=== PATIENT | female | born 1945 | race Caucasian/White ===

== ENCOUNTER 2016-07-01 11:03 | Emergency (ER) | payer MEDICARE ==
[2016-07-01 13:14] LABS: APPEARANCE CLEAR (CLEAR); BILIRUBIN NEGATIVE (NEGATIVE); COLOR YELLOW (YELLOW); GLUCOSE NEGATIVE (NEGATIVE); KETONE NEGATIVE (NEGATIVE); LEUKOCYTE ESTERASE NEGATIVE (NEGATIVE); NITRITE NEGATIVE (NEGATIVE); PROTEIN NEGATIVE (NEGATIVE); UROBILINOGEN NORMAL (NORMAL)
== END 2016-07-01 15:23 | disposition home or self-care (01) ==
LOC: D.ER 11:03
PROVIDERS: Emergency Medicine
DX: R33.9 Retention of urine, unspecified (principal); I10 Essential (primary) hypertension; E78.00 Pure hypercholesterolemia, unspecified; G47.00 Insomnia, unspecified

== ENCOUNTER → 2016-08-12 16:06 | Outpatient (CLI) | payer MEDICARE | END | disposition home or self-care (01) | LOC: D.MRI 08-06 14:30 | DX: M54.12 Radiculopathy, cervical region (principal) ==

== ENCOUNTER 2017-09-06 20:40 | Emergency (ER) | payer MEDICARE, BC ==
[2017-09-06 21:53] LABS: APPEARANCE CLEAR (CLEAR); BILIRUBIN NEGATIVE (NEGATIVE); COLOR STRAW (YELLOW); GLUCOSE NEGATIVE (NEGATIVE); KETONE NEGATIVE (NEGATIVE); NITRITE NEGATIVE (NEGATIVE); PROTEIN NEGATIVE (NEGATIVE); UROBILINOGEN NORMAL (NORMAL)
[2017-09-06 21:54] LABS: BASOPHILS 0.6 % (0-2); EOSINOPHILS 2.5 % (0-7); HEMATOCRIT 44.3 % (36.0-48.0); HEMOGLOBIN 14.8 g/dL (12-16); IMMATURE GRANULOCYTES 0.2 % (0-5); LYMPHOCYTES 40.2 % (15-50); MCH 29.6 pg (26.0-34.0); MCHC 33.4 g/dL (31.0-37.0); MCV 88.6 fL (80.0-100.0); MEAN PLATELET VOLUME 10.4 fL (7.4-10.4); MONOCYTES 13.5 % (2-11); PLATELET COUNT 107 10x3/uL (130-400); RDW 16.7 % (11.5-14.5); WBC 5.2 10x3/uL (4.8-10.8)
[2017-09-06 21:57] LABS: UDS - AMPHET NEGATIVE QUAL (NEGATIVE); UDS - BARB NEGATIVE QUAL (NEGATIVE); UDS - BENZO POSITIVE QUAL (NEGATIVE); UDS - COCAINE NEGATIVE QUAL (NEGATIVE); UDS - OPIATE POSITIVE QUAL (NEGATIVE); UDS - PCP NEGATIVE QUAL (NEGATIVE); UDS - THC NEGATIVE QUAL (NEGATIVE)
[2017-09-06 22:00] LABS: ALBUMIN 3.5 g/dL (3.4-5.0); ALKALINE PHOSPHATASE 67 U/L (46-116); ALT (SGPT) 38 U/L (10-68); BILIRUBIN - TOTAL 0.31 mg/dL (0.2-1.3); CALC OSMOLALITY 290 mosm/kg (275-300); CARBON DIOXIDE 26.5 mmol/L (21.0-32.0); CHLORIDE - SERUM 110 mmol/L (98-107); CREATININE - SERUM 0.8 mg/dL (0.6-1.3); GLUCOSE 86 mg/dL (74-106); PROTEIN - SERUM 7.5 g/dL (6.4-8.2); SODIUM 147 mmol/L (136-145); UREA NITROGEN 13 mg/dL (7-18); eGFR NON AFRICAN AMERICAN 75 mL/min (90-120)
[2017-09-06 22:09] LABS: LIPASE 118 U/L (73-393); PRO BNP 35 pg/mL (0-125); THYROID STIMULATING HORMONE 1.74 uIU/mL (0.36-3.74)
[2017-09-06 22:10] LABS: TROPONIN-I < 0.017 ng/mL (0.000-0.060)
== END 2017-09-06 23:08 | disposition home or self-care (01) ==
LOC: EDSEX 20:40 → D.ER 20:40
PROVIDERS: Family Medicine
DX: R45.851 Suicidal ideations (principal); F10.129 Alcohol abuse with intoxication, unspecified; Z86.59 Personal history of other mental and behavioral disorders

== ENCOUNTER → 2017-10-19 14:17 | Outpatient (CLI) | payer MEDICARE | END | disposition home or self-care (01) | LOC: D.MRI 14:00 | DX: S06.5X0A Traumatic subdural hemorrhage without loss of consciousness, initial encounter (principal); X58.XXXA Exposure to other specified factors, initial encounter; Y93.9 Activity, unspecified; Y92.9 Unspecified place or not applicable ==

== ENCOUNTER → 2017-11-30 15:38 | Outpatient (CLI) | payer MEDICARE | END | disposition home or self-care (01) | LOC: D.MRI 11-25 09:30 | DX: S06.5X0D Traumatic subdural hemorrhage without loss of consciousness, subsequent encounter (principal); X58.XXXA Exposure to other specified factors, initial encounter ==

== ENCOUNTER → 2018-01-13 14:08 | Outpatient (CLI) | payer MEDICARE | END | disposition home or self-care (01) | LOC: D.MRI 01-12 14:00 | DX: S06.5X0D Traumatic subdural hemorrhage without loss of consciousness, subsequent encounter (principal); X58.XXXA Exposure to other specified factors, initial encounter ==

== ENCOUNTER → 2018-05-04 12:38 | Outpatient (CLI) | payer MEDICARE ==
--- NOTE | ~2018-05-04 | ST ---
PATIENT:JUANA RHOADES MEDICAL RECORD: [id number] SEX: M LOCATION:[facility] ORDER #: ADMISSION DATE: 05/04/18 AGE OF PATIENT: 73 REFERRING PHYSICIAN: INTERPRETING PHYSICIAN: ROBERT FREEMAN MD DATE OF SERVICE: 05/04/2018 PROCEDURE: Nuclear stress test. INDICATION: Chest pain, shortness of breath, hypertension, and hyperlipidemia. DESCRIPTION OF PROCEDURE: The patient was exercised on standard Lexiscan protocol with 32.6 mCi injected at peak stress, 10.7 mCi were used previously for rest images. FINDINGS: Gated SPECT reveals preserved ejection fraction at 67% with good wall motioning and thickening and brightening throughout all segments. SPECT IMAGING: Sestamibi is used as a myocardial perfusion agent. There is definite reversibility inferiorly and apically. This includes the basal, mid apical, inferior segments as well as the apex itself. The degree of reversibility is moderate. The amount of myocardium involved is moderate. OVERALL IMPRESSION: 1. This is an abnormal nuclear stress test with reversible ischemia inferiorly and apically. 2. Gated SPECT reveals preserved ejection fraction greater than 60%. In this patient with ongoing symptomatology, the current scan does suggest the presence of hemodynamically significant coronary artery disease. We will proceed with coronary angiography as followup study. TRANSINT:[id number] Voice Confirmation ID: [id number] DOCUMENT ID: [id number] ROBERT FREEMAN MD at 1704 CC: [id number] DICTATION DATE: 05/05/18 1205 CARPET REPAIRER: 05/05/18 1322 DEP CLI 05/04/18 [address] [place] [address]
== END | disposition home or self-care (01) ==
LOC: D.HCCARDIO 12:30
DX: I25.10 Atherosclerotic heart disease of native coronary artery without angina pectoris (principal)

== ENCOUNTER → 2018-05-17 13:54 | Outpatient (CLI) | payer MEDICARE | END | disposition home or self-care (01) | LOC: D.MRI 13:54 | DX: S06.5X0D Traumatic subdural hemorrhage without loss of consciousness, subsequent encounter (principal); X58.XXXA Exposure to other specified factors, initial encounter ==

== ENCOUNTER 2018-08-12 08:46 | Day surgery (SDC) | payer MEDICARE ==
[~2018-08-12] VITALS: Ht 172.7 cm; Wt 112.0 kg
[~2018-08-12 08:46] MED LIST: AMBIEN10 MG PO; FLOMAX0.4 MG PO; LISINOPRIL-HCT1 EAC7 PO; PHENERGAN25 M1 PO; XANAX1 MG PO; ZOFRAN ODT4 MG/UDTAB PO
[2018-08-12 09:47] LABS: HEMATOCRIT 39.6 % (42.0-54.0); HEMOGLOBIN 12.7 g/dL (13.5-17.5); MCH 26.7 pg (26.0-34.0); MCHC 32.1 g/dL (31.0-37.0); MCV 83.2 fL (80.0-100.0); MEAN PLATELET VOLUME 11.2 fL (7.4-10.4); RBC 4.76 10x6/uL (4.20-6.10); WBC 5.7 10x3/uL (4.8-10.8)
[2018-08-12 09:50] LABS: CALC OSMOLALITY 285 mosm/kg (275-300); CALCIUM 8.4 mg/dL (8.5-10.1); CHLORIDE - SERUM 105 mmol/L (98-107); CREATININE - SERUM 0.9 mg/dL (0.6-1.3); GLUCOSE 101 mg/dL (74-106); POTASSIUM - SERUM 3.4 mmol/L (3.5-5.1); SODIUM 143 mmol/L (136-145); UREA NITROGEN 14 mg/dL (7-18); eGFR NON AFRICAN AMERICAN 88 mL/min (90-120)
[2018-08-12 10:26] VITALS: BP 109/67; Ht 172.7 cm; Wt 112.0 kg
--- NOTE | 2018-08-13 09:02 | OP ---
PATIENT NAME: JUANA RHOADES MEDICAL RECORD: [id number] :49 LOCATION:D.OPS ADMISSION DATE: SURGEON: KOKO DALEY MD DATE OF OPERATION: 08/12/2018 SURGEON: Koko Daley MD ANESTHESIA: TIVA by Blake Dudley CRNA DIAGNOSES: Obstructive BPH, PSA 0.79 on 07/21/2018, COLIN with 30 mL prostate size. The patient is not in urinary retention. The patient has been on tamsulosin for greater than 6 months. With the medication on board, he has an IPSS score of 28 and a quality of life score of 6. PROCEDURE: UroLift times 5 implant, 3 placed on the left side and 2 on the right side. FINDINGS: Bilateral lateral lobe hyperplasia with long prostatic urethra. Nonobstructive small median lobe. Single ureteral orifice bilaterally. No bladder tumors. ESTIMATED BLOOD LOSS: Minimal. CLINICAL HISTORY: This is a 73-year-old male who has long-standing history of bladder outlet obstruction. He had been on finasteride 6 years ago, but he stopped it when he read that it could give him high-grade prostate cancer. His BPH symptoms have become worse in the past 2 years. For at least 6 months now, he has been on tamsulosin. Even with the tamsulosin, he is still having quite significant voiding symptoms. He does not have urinary retention. He has an IPSS score of 28 and a quality of life score of 6. On digital rectal examination, the prostate is about 30 mL in size without nodularity. He comes to have the UroLift procedure done. HE IS ALLERGIC TO PENICILLIN AND ADIPEX. He was given Ancef on-call to the OR. He did not have a reaction with Ancef. DESCRIPTION OF PROCEDURE: The patient was given IV sedation. He was then placed in dorsal lithotomy position and prepped and draped. UroLift cystoscope was inserted with the findings as outlined above. We placed one implant on each side of the bladder neck level. This is actually 1.5 cm distal to the bladder neck and placed in the anterolateral prostatic urethra. We placed one implant on each side of the verumontanum level and again at the anterolateral prostatic urethra. On looking at the prostatic urethra with the obturator, it seemed that there was still tissue from the patient's right side, which was encroaching into the lumen. This was the tissue in the midportion of the prostatic urethra. I therefore placed another unit in the midportion of the right lateral lobe in the anterior portion. This final unit opened up the anterior urethral channel quite nicely. His bladder was then emptied through the cystoscope and the patient was brought to the preoperative holding area. I will see him in follow up in one month's time. TRANSINT:[id number] Voice Confirmation ID: [id number] DOCUMENT ID: [id number] OPERATIVE REPORT [id number] JUANA RHOADES, KOKO Sol MD at 0902 CC: [id number] DICTATION DATE: 08/12/18 1358 GERIATRIC NURSE ASSISTANT: 08/12/18 1619 [facility] 08/12/18 [address] [place] [address]
== END 2018-08-12 17:08 | disposition home or self-care (01) ==
LOC: D.OPS 08:46
PROVIDERS: Anesthesiology; ATTEND Urology
DX: N40.1 Benign prostatic hyperplasia with lower urinary tract symptoms (principal); N13.8 Other obstructive and reflux uropathy; Z88.0 Allergy status to penicillin; Z88.8 Allergy status to other drugs, medicaments and biological substances; Z01.812 Encounter for preprocedural laboratory examination

== ENCOUNTER → 2018-08-19 18:45 | Outpatient (CLI) | payer MEDICARE ==
[2018-08-12 10:26] VITALS: BMI 37.6
== END | disposition home or self-care (01) ==
LOC: D.LABREF 18:45
PROVIDERS: ATTEND Urology
DX: D72.829 Elevated white blood cell count, unspecified (principal); R31.9 Hematuria, unspecified

== ENCOUNTER 2018-10-08 18:42 | Emergency (ER) | payer MEDICARE ==
[~2018-10-08] VITALS: Ht 172.7 cm; Wt 117.3 kg
[2018-10-08 18:49] VITALS: Ht 172.7 cm; Wt 117.3 kg
[2018-10-08 19:25] LABS: BASOPHILS 0.5 % (0-2); EOSINOPHILS 0.8 % (0-7); HEMATOCRIT 41.5 % (42.0-54.0); HEMOGLOBIN 13.8 g/dL (13.5-17.5); IMMATURE GRANULOCYTES 0.3 % (0-5); LYMPHOCYTES 13.5 % (15-50); MCH 27.5 pg (26.0-34.0); MCHC 33.3 g/dL (31.0-37.0); MCV 82.7 fL (80.0-100.0); MEAN PLATELET VOLUME 9.2 fL (7.4-10.4); MONOCYTES 12.2 % (2-11); NEUTROPHILS 72.7 % (40-80); PLATELET COUNT 126 10x3/uL (130-400); RBC 5.02 10x6/uL (4.20-6.10); RDW 19.1 % (11.5-14.5); WBC 6.2 10x3/uL (4.8-10.8)
[2018-10-08 19:50] LABS: ALBUMIN 3.6 g/dL (3.4-5.0); ALKALINE PHOSPHATASE 105 U/L (46-116); ALT (SGPT) 118 U/L (10-68); BILIRUBIN - TOTAL 0.41 mg/dL (0.2-1.3); CALC OSMOLALITY 282 mosm/kg (275-300); CALCIUM 8.2 mg/dL (8.5-10.1); CARBON DIOXIDE 23.6 mmol/L (21.0-32.0); CHLORIDE - SERUM 103 mmol/L (98-107); CREATININE - SERUM 0.9 mg/dL (0.6-1.3); GLUCOSE 106 mg/dL (74-106); MAGNESIUM - SERUM 1.8 mg/dL (1.8-2.4); POTASSIUM - SERUM 4.2 mmol/L (3.5-5.1); PROTEIN - SERUM 8.1 g/dL (6.4-8.2); SODIUM 142 mmol/L (136-145); UREA NITROGEN 12 mg/dL (7-18); eGFR NON AFRICAN AMERICAN 88 mL/min (90-120)
[2018-10-08 20:43] LABS: APPEARANCE CLEAR (CLEAR); BILIRUBIN NEGATIVE (NEGATIVE); COLOR YELLOW (YELLOW); GLUCOSE NEGATIVE (NEGATIVE); KETONE SMALL mg/dL (NEGATIVE); NITRITE NEGATIVE (NEGATIVE); PROTEIN NEGATIVE (NEGATIVE); SPECIFIC GRAVITY 1.015 (1.005-1.020); UROBILINOGEN NORMAL (NORMAL)
[2018-10-08 20:44] LABS: UDS - AMPHET NEGATIVE QUAL (NEGATIVE); UDS - BARB NEGATIVE QUAL (NEGATIVE); UDS - BENZO POSITIVE QUAL (NEGATIVE); UDS - COCAINE NEGATIVE QUAL (NEGATIVE); UDS - OPIATE POSITIVE QUAL (NEGATIVE); UDS - PCP NEGATIVE QUAL (NEGATIVE); UDS - THC NEGATIVE QUAL (NEGATIVE)
[2018-10-08 20:54] LABS: INR 1.02 (0.85-1.17); PROTIME 12.9 SECONDS (11.6-15.0)
[2018-10-08 22:04] VITALS: BP 162/72
== END 2018-10-08 22:04 | disposition home or self-care (01) ==
LOC: D.ER 18:42
PROVIDERS: Emergency Medicine
DX: F10.10 Alcohol abuse, uncomplicated (principal); S09.90XA Unspecified injury of head, initial encounter; W19.XXXA Unspecified fall, initial encounter; Y93.9 Activity, unspecified

== ENCOUNTER 2019-03-11 17:02 | Emergency (ER) | payer MEDICARE ==
[~2019-03-11] VITALS: Ht 172.7 cm; Wt 113.6 kg
[2019-03-11 17:42] VITALS: Ht 172.7 cm; Wt 113.6 kg
[2019-03-11] MEDS ORDERED: HYDROCODONE-A1 UDTA2 PO (17:51)
[2019-03-11 18:52] LABS: BASOPHILS 0.6 % (0-2); EOSINOPHILS 2.8 % (0-7); HEMATOCRIT 44.8 % (42.0-54.0); HEMOGLOBIN 14.6 g/dL (13.5-17.5); IMMATURE GRANULOCYTES 0.1 % (0-5); LYMPHOCYTES 17.7 % (15-50); MCH 28.9 pg (26.0-34.0); MCHC 32.6 g/dL (31.0-37.0); MCV 88.5 fL (80.0-100.0); MEAN PLATELET VOLUME 10.9 fL (7.4-10.4); MONOCYTES 12.5 % (2-11); NEUTROPHILS 66.3 % (40-80); RBC 5.06 10x6/uL (4.20-6.10)
[2019-03-11 19:07] LABS: INR 1.06 (0.85-1.17); PROTIME 13.3 SECONDS (11.6-15.0)
[2019-03-11 19:10] LABS: ALKALINE PHOSPHATASE 115 U/L (46-116); ALT (SGPT) 124 U/L (10-68); BILIRUBIN - TOTAL 0.32 mg/dL (0.2-1.3); CALC OSMOLALITY 285 mosm/kg (275-300); CALCIUM 8.5 mg/dL (8.5-10.1); CARBON DIOXIDE 25.7 mmol/L (21.0-32.0); CHLORIDE - SERUM 105 mmol/L (98-107); GLUCOSE 109 mg/dL (74-106); POTASSIUM - SERUM 3.8 mmol/L (3.5-5.1); SODIUM 143 mmol/L (136-145); UREA NITROGEN 13 mg/dL (7-18); eGFR NON AFRICAN AMERICAN 78 mL/min (90-120)
[2019-03-11 19:12] LABS: PLATELET COUNT 163 10x3/uL (130-400)
[2019-03-11 19:23] LABS: CKMB 7.8 U/L (0.0-3.6); CREATINE KINASE 419 UL (21-232); MAGNESIUM - SERUM 2.3 mg/dL (1.8-2.4); THYROID STIMULATING HORMONE 2.47 uIU/mL (0.36-3.74); TROPONIN-I < 0.017 ng/mL (0.000-0.060)
[2019-03-11] MEDS ORDERED: XANAX2 MG PO (20:46)
[2019-03-11 21:07] VITALS: BP 140/90
== END 2019-03-11 21:07 | disposition home or self-care (01) ==
LOC: D.ER 17:02
PROVIDERS: Emergency Medicine
DX: R47.81 Slurred speech (principal); F41.0 Panic disorder [episodic paroxysmal anxiety]; R74.8 Abnormal levels of other serum enzymes; I10 Essential (primary) hypertension

== ENCOUNTER 2019-03-16 17:53 | Emergency (ER) | payer MEDICARE ==
[~2019-03-16] VITALS: Ht 172.7 cm; Wt 113.6 kg
[~2019-03-16 17:53] MED LIST changes: +HYDROCODONE-A1 UDTA2 PO; +XANAX2 MG PO
[2019-03-16 17:56] VITALS: BP 131/73; Ht 172.7 cm; Wt 113.6 kg
[2019-03-16 18:30] LABS: BASOPHILS 0.5 % (0-2); HEMATOCRIT 45.4 % (42.0-54.0); HEMOGLOBIN 14.7 g/dL (13.5-17.5); IMMATURE GRANULOCYTES 0.3 % (0-5); LYMPHOCYTES 22.2 % (15-50); MCH 28.7 pg (26.0-34.0); MCHC 32.4 g/dL (31.0-37.0); MCV 88.5 fL (80.0-100.0); MEAN PLATELET VOLUME 10.8 fL (7.4-10.4); MONOCYTES 15.7 % (2-11); NEUTROPHILS 58.3 % (40-80); PLATELET COUNT 164 10x3/uL (130-400); RBC 5.13 10x6/uL (4.20-6.10); RDW 16.6 % (11.5-14.5); WBC 6.6 10x3/uL (4.8-10.8)
[2019-03-16 18:47] LABS: ALBUMIN 3.7 g/dL (3.4-5.0); ALKALINE PHOSPHATASE 83 U/L (46-116); ALT (SGPT) 57 U/L (10-68); BILIRUBIN - TOTAL 0.21 mg/dL (0.2-1.3); CALC OSMOLALITY 287 mosm/kg (275-300); CALCIUM 8.8 mg/dL (8.5-10.1); CARBON DIOXIDE 27.4 mmol/L (21.0-32.0); CHLORIDE - SERUM 105 mmol/L (98-107); GLUCOSE 113 mg/dL (74-106); POTASSIUM - SERUM 3.8 mmol/L (3.5-5.1); SODIUM 144 mmol/L (136-145); UREA NITROGEN 12 mg/dL (7-18); eGFR NON AFRICAN AMERICAN 78 mL/min (90-120)
[2019-03-16 18:49] LABS: MAGNESIUM - SERUM 1.9 mg/dL (1.8-2.4)
== END 2019-03-16 20:09 | disposition left against medical advice (07) ==
LOC: D.ER 17:53
PROVIDERS: Emergency Medicine
DX: F10.129 Alcohol abuse with intoxication, unspecified (principal); Z76.5 Malingerer [conscious simulation]; I10 Essential (primary) hypertension

== ENCOUNTER 2019-07-04 13:10 | Emergency (ER) | payer MEDICARE ==
[~2019-07-04] VITALS: Ht 172.7 cm; Wt 106.8 kg
[2019-07-04 13:32] VITALS: Ht 172.7 cm; Wt 106.8 kg
[2019-07-04] MEDS ORDERED: FLOMAX0.4 MG PO (13:34)
[2019-07-04] MEDS ORDERED: ZOFRAN4 MG PO (14:05)
[2019-07-04 14:13] VITALS: BP 148/58
== END 2019-07-04 14:15 | disposition home or self-care (01) ==
LOC: D.ER 13:10
DX: R11.0 Nausea (principal); T83.84XA Pain due to genitourinary prosthetic devices, implants and grafts, initial encounter; I10 Essential (primary) hypertension; K21.9 Gastro-esophageal reflux disease without esophagitis

== ENCOUNTER 2019-07-06 15:17 | Inpatient (IN) | payer MEDICARE, OTHER ==
[~2019-07-06] VITALS: Ht 172.7 cm; Wt 104.7 kg
[~2019-07-06 15:17] MED LIST changes: +ZOFRAN4 MG PO
[2019-07-06 16:12] LABS: BASOPHILS 0.3 % (0-2); EOSINOPHILS 2.1 % (0-7); HEMATOCRIT 38.6 % (42.0-54.0); HEMOGLOBIN 12.7 g/dL (13.5-17.5); IMMATURE GRANULOCYTES 0.7 % (0-5); LYMPHOCYTES 9.3 % (15-50); MCH 26.7 pg (26.0-34.0); MCHC 32.9 g/dL (31.0-37.0); MCV 81.1 fL (80.0-100.0); MEAN PLATELET VOLUME 10.1 fL (7.4-10.4); MONOCYTES 14.6 % (2-11); PLATELET COUNT 203 10x3/uL (130-400); RBC 4.76 10x6/uL (4.20-6.10); RDW 16.8 % (11.5-14.5); WBC 10.7 10x3/uL (4.8-10.8)
[2019-07-06 16:23] LABS: INR 1.05 (0.85-1.17); PROTIME 13.6 SECONDS (11.6-15.0)
[2019-07-06 16:26] LABS: CALC OSMOLALITY 266 mosm/kg (275-300); CALCIUM 8.9 mg/dL (8.5-10.1); CARBON DIOXIDE 28.3 mmol/L (21.0-32.0); CHLORIDE - SERUM 96 mmol/L (98-107); CREATININE - SERUM 0.9 mg/dL (0.6-1.3); GLUCOSE 89 mg/dL (74-106); POTASSIUM - SERUM 4.3 mmol/L (3.5-5.1); SODIUM 132 mmol/L (136-145); UREA NITROGEN 20 mg/dL (7-18); eGFR NON AFRICAN AMERICAN 88 mL/min (90-120)
[2019-07-06 16:28] LABS: APPEARANCE CLEAR (CLEAR); BILIRUBIN NEGATIVE (NEGATIVE); COLOR YELLOW (YELLOW); GLUCOSE NEGATIVE (NEGATIVE); KETONE NEGATIVE (NEGATIVE); NITRITE NEGATIVE (NEGATIVE); PROTEIN NEGATIVE (NEGATIVE); UROBILINOGEN NORMAL (NORMAL)
[2019-07-06 16:30] LABS: BACTERIA MODERATE /hpf (NEGATIVE)
[2019-07-06 16:31] LABS: UDS - AMPHET NEGATIVE QUAL (NEGATIVE); UDS - BARB NEGATIVE QUAL (NEGATIVE); UDS - BENZO POSITIVE QUAL (NEGATIVE); UDS - COCAINE NEGATIVE QUAL (NEGATIVE); UDS - OPIATE POSITIVE QUAL (NEGATIVE); UDS - PCP NEGATIVE QUAL (NEGATIVE); UDS - THC NEGATIVE QUAL (NEGATIVE)
[2019-07-06 16:42] LABS: ALBUMIN 3.3 g/dL (3.4-5.0); ALKALINE PHOSPHATASE 82 U/L (46-116); ALT (SGPT) 44 U/L (10-68); BILIRUBIN - TOTAL 0.28 mg/dL (0.2-1.3); CKMB 3.9 U/L (0.0-3.6); CREATINE KINASE 359 UL (21-232); MAGNESIUM - SERUM 2.1 mg/dL (1.8-2.4); PROTEIN - SERUM 7.2 g/dL (6.4-8.2); THYROID STIMULATING HORMONE 2.87 uIU/mL (0.36-3.74); TROPONIN-I < 0.017 ng/mL (0.000-0.060)
[2019-07-06 18:32] VITALS: BP 135/54
--- NOTE | 2019-07-06 18:33 | NUR ---
AFTER MULTIPLE TIMES OF ASKING THE PT TO SIT DOWN, NOT MOVE AROUNS UNSUCCESSFUL, PT PULLED OUT IV, CATH TIP INTACT, NO BLEEDING NOTED, NATALIYA TRAVELING CRANE OPERATOR NOTIFIED, WILL ATTEMPT TO RESTART IV, PT ALSO POURDED HIS WATER OUT 2 TIMES ON THE FLORR, FLOOR CLEANED UP AND DRIED, PT STATES"I'M SORRY I DIDN'T MEAN TO DO IT".
--- NOTE | 2019-07-06 19:16 | NUR ---
NOTE MADE IN ERROR.
--- NOTE | 2019-07-06 19:41 | NUR ---
PT'S IV LEVAQUIN AND NS BOLUS STILL INFUSING UPON TRANSFER TO FLOOR
[2019-07-06 20:13] VITALS: BP 127/63; Ht 172.7 cm; Wt 104.7 kg
--- NOTE | 2019-07-06 20:20 | NUR ---
RECIEVED REPORT FROM DANIEETHAN. PT ARRIVED BY BED. VSS, A/CONFUSED. PRE-HOSPITALIZATION PEREZ INTACT. ALTHOUGH PT HAS THE PEREZ BAG WARAPPED AROUND HIS NECK AND REFUSED TO TAKE IT OFF. NS AND LEVAQUIN INFUSING ON ARRIVAL. ADMISSION ASSESSMENT COMPLETED. PT DENIES ANY FURTHER NEEDS AT THIS TIME. BED ALARM ON. WILL CTM.
[2019-07-07 00:30] VITALS: BP 134/54
--- NOTE | 2019-07-07 02:07 | NUR ---
PT DISCONNECTED HIS PEREZ AT THE POINT WHERE IT IS ATTACHED TO THE BAG. PT APPEARS MODERATELY CONFUSED. STERNLY NOTIFIED ABOUT RISK OF INFECTION AND URINE LEAKAGE TO THE FLOOR, BUT PT INSIST ON HOLDING THE TUBINGIN HIS HAND WITHOUT IT BEEN CONNECTED TO THE PEREZ BAG.
[2019-07-07 04:30] VITALS: BP 134/66; BP 172/76
--- NOTE | 2019-07-07 05:31 | NUR ---
PT C/O OF NAUSEA. ZOFRAN GIVEN. ALSO ON ASSESSMENT SBP >190. HR 47. CALLED AND NOTIFIED ON-CALL . HE ORDER CLONIDINE 0.1MG PO ONE TIME. HE STATES DR. ORR WILL START PT ON HIS PREFFERED MED WHEN HE MAKES ROUND TODAY. PT ALSO C/O OF COLD. WARM BLANKET PROVIDED. PT DENIES ANY FURTHER NEEDS AT THIS TIME. WILL CPOC. CL WITHIN REACH.
[2019-07-07 05:44] LABS: BASOPHILS 0.3 % (0-2); EOSINOPHILS 4.4 % (0-7); HEMATOCRIT 38.6 % (42.0-54.0); HEMOGLOBIN 12.5 g/dL (13.5-17.5); IMMATURE GRANULOCYTES 0.8 % (0-5); LYMPHOCYTES 16.8 % (15-50); MCH 26.5 pg (26.0-34.0); MCHC 32.4 g/dL (31.0-37.0); MCV 81.8 fL (80.0-100.0); MEAN PLATELET VOLUME 9.8 fL (7.4-10.4); MONOCYTES 15.1 % (2-11); NEUTROPHILS 62.6 % (40-80); PLATELET COUNT 199 10x3/uL (130-400); RBC 4.72 10x6/uL (4.20-6.10); RDW 16.8 % (11.5-14.5)
[2019-07-07 05:51] LABS: WBC 6.6 10x3/uL (4.8-10.8)
[2019-07-07 06:29] LABS: % SATURATION 13 % (15-55); IRON 42 ug/dl (35-150); TOTAL IRON BIND CAPACITY 319 ug/dl (260-445); UNSAT IRON BIND CAPACITY 277 ug/dl (150-375)
[2019-07-07 06:43] LABS: CALC OSMOLALITY 265 mosm/kg (275-300); CALCIUM 8.4 mg/dL (8.5-10.1); CHLORIDE - SERUM 98 mmol/L (98-107); CREATININE - SERUM 0.9 mg/dL (0.6-1.3); FERRITIN 59 ng/mL (3-244); GLUCOSE 81 mg/dL (74-106); MAGNESIUM - SERUM 2.4 mg/dL (1.8-2.4); PHOSPHOROUS 2.6 mg/dL (2.5-4.9); POTASSIUM - SERUM 4.6 mmol/L (3.5-5.1); SODIUM 133 mmol/L (136-145); eGFR NON AFRICAN AMERICAN 88 mL/min (90-120)
[2019-07-07 06:45] LABS: UREA NITROGEN 14 mg/dL (7-18)
--- NOTE | 2019-07-07 06:52 | NUR ---
NOTIFIED SPOUSE ABOUT PT BEING TRANSFERED TO ICU. SPOUSE STATES SHE WILL BE HERE AT 9AM THIS MORNING.
--- NOTE | 2019-07-07 07:15 | NUR ---
CALLED AND NOTIFIED LUIS ONEAL ABOUT PT'S CONTINUOUS RETLESSNES AND AGGITATION. HE ORDERED A 1 TIME ORDER OF 10MG GEODON. MED GIVEN. PT RESTING COMFORTABLY AT THIS TIME. ICU TRANSFER ORDER PLACED PER PROVIDERS ORDER. WILL CPOC.
[2019-07-07 07:46] VITALS: BP 147/64
--- NOTE | 2019-07-07 08:18 | NUR ---
pardeep arrived to unit. jconfused. ns infusing at 125. hallucinating about Miguel. no acute distress. vss. asked for xanax and ambien to help him sleep. restraints at bedside incase needed. knows he is at [facility] states his coats hurts and wants it out. educated on why he cant pull it out. lungs cta. pulses palp x4. room air 97%. will continue to monitor
--- NOTE | 2019-07-07 08:24 | NUR ---
attempted to pull medications for patient. ana showed she pulled them but never scanned them. call med 2 to speak with tera to make sure double doses are not given to the patient
--- NOTE | 2019-07-07 09:47 | NUR ---
AT BEDSIDE. PATIENT EATING BREAKFAST. AWAKE AND ALERT. WILL COTMARTIRNUE TOMONITOR
[2019-07-07 11:00] VITALS: BP 110/73
--- NOTE | 2019-07-07 11:30 | NUR ---
patient sleeping. easily aroused. vss. no acute distress. states he needs to see dr shirin peñaloza to get this coats out. stated he will be by to see you just have to be patient. patient is very compliant. follows commands. not pulling or tugging at coats. will continue to monitor
--- NOTE | 2019-07-07 13:50 | NUR ---
patient sleeping. vss. no caute distress.. eaisly awakens with bvoice. calm and cooperative.
[2019-07-07 15:00] VITALS: BP 122/58
--- NOTE | 2019-07-07 15:03 | NUR ---
PATIENT PULLED OUT IV SO NEW IV STARTED ON R FOREARM
--- NOTE | 2019-07-07 15:37 | NUR ---
pauly dc'd per dr carpio. he stated he does not believe he needs a turp.
--- NOTE | 2019-07-07 15:38 | NUR ---
dr carpio stated to call if he does not urinate this evening after bladder scanning him.
--- NOTE | 2019-07-07 17:16 | NUR ---
PATIENT TRYING TO PULL AT LINES. GETTING OUT OF BED AND TRYING TO LEAVE THE ROOM. CALLED DR PRUITT. NEW ORDERS GIVEN
--- NOTE | 2019-07-07 18:23 | NUR ---
bladder scanned patient at this time. volume was 287. patient states he has no urge to pee at this time. will continue to monitor patient.
--- NOTE | 2019-07-07 19:45 | NUR ---
spoke with pharmacy about giving pm dose of stacy germp since it was given at 1100 today. Pharmacy states pt can have hs dose as ordered.
[2019-07-07 20:00] VITALS: BP 151/80
--- NOTE | 2019-07-07 20:25 | NUR ---
SPOKE WITH DR. HIGGINS ABOUT PAITENT TRYING TO GET OUT OF BED, INSISTING HE CAN NOT URINATE, THAT HE IS IN SEVERE PAIN, AND IS LEAVING IF HE DOESN'T GET A PEREZ SO HE CAN URINATE. DR. HIGGINS ORDER PLACEMENT OF PEREZ CATH FOR TONIGHT.
--- NOTE | 2019-07-07 20:30 | NUR ---
PATIENT HAD BLOOD NOTED IN PANTS AND AROUND URETHRA OPENING. 16 F PEREZ ATTEMPTED WITH RETURN OF DARK BLOOD AND NO URINE NOTED. BALLOON INFLATED AND WHEN PULLED BACK IT STOPPED. NO URINE NOTED IN TUBING WILL CONTINUE TO MONITOR.
--- NOTE | 2019-07-07 21:45 | NUR ---
PATIENT STILL HAS NO URINE IN PEREZ AND IS COMPLAINING HE NEEDS TO URINATE. PEREZ REMOVED AND COUDE 16F CATH INSERTED WITHOUT ISSUE. PATIENT IS STILL HAVE A SMALL AMOUNT OF BLEEDING NOTED AROUND END OF URETHRA. PEREZ WENT IN WITHOUT ISSUE IMMEDIATE RETURN OF 1200 ML OF CL YELLOW URINE.
[2019-07-08] VITALS (7 sets, daily range): BP systolic 123–181; BP diastolic 69–110
[2019-07-08 03:38] LABS: BASOPHILS 0.4 % (0-2); EOSINOPHILS 3.7 % (0-7); IMMATURE GRANULOCYTES 0.5 % (0-5); LYMPHOCYTES 12.4 % (15-50); MCHC 32.5 g/dL (31.0-37.0); MEAN PLATELET VOLUME 9.7 fL (7.4-10.4); MONOCYTES 16.2 % (2-11); NEUTROPHILS 66.8 % (40-80); PLATELET COUNT 201 10x3/uL (130-400); RBC 4.82 10x6/uL (4.20-6.10)
[2019-07-08 03:45] LABS: WBC 8.4 10x3/uL (4.8-10.8)
[2019-07-08 03:56] LABS: CALC OSMOLALITY 278 mosm/kg (275-300); CALCIUM 8.4 mg/dL (8.5-10.1); CARBON DIOXIDE 27.4 mmol/L (21.0-32.0); CHLORIDE - SERUM 105 mmol/L (98-107); CREATININE - SERUM 0.9 mg/dL (0.6-1.3); GLUCOSE 91 mg/dL (74-106); MAGNESIUM - SERUM 2.5 mg/dL (1.8-2.4); POTASSIUM - SERUM 4.4 mmol/L (3.5-5.1); SODIUM 140 mmol/L (136-145); UREA NITROGEN 13 mg/dL (7-18); eGFR NON AFRICAN AMERICAN 88 mL/min (90-120)
[2019-07-08 03:59] LABS: PHOSPHOROUS 3.7 mg/dL (2.5-4.9)
--- NOTE | 2019-07-08 07:30 | NUR ---
patient is alert and oriented but does hallucinate at times. patient states things happened that never happened. he is alert to time place and situation. answers most questions appropriately. calm and cooperative. see assessment. see adl's. coats in place free of kinks and off floor. side rails x2 and bed in lowest position
--- NOTE | 2019-07-08 09:16 | NUR ---
patient on the phone. attempting to contact dr johnson on his personal cellular. patient has demanded multiple times to get ahold of dr johnson. explained that the dr will be here before noon to see him. no acute distress. will continue to monitor
--- NOTE | 2019-07-08 13:30 | NUR ---
patient actually sleeping. no acute distress. pulled off spo2, bp cuff and heart monitor.
--- NOTE | 2019-07-08 14:40 | NUR ---
patient requesting i call dr johnson to
--- NOTE | 2019-07-08 14:40 | NUR ---
patient refuses to use bedside commode. states we have him "locked up" and are not letting him out. explained this is ICU and were a closed unit
--- NOTE | 2019-07-08 15:01 | NUR ---
dr herrera at bedside
--- NOTE | 2019-07-08 17:03 | NUR ---
pauly dc'd per dr carpio. if he does not pee all night insert coats again per dr carpio
--- NOTE | 2019-07-08 17:25 | NUR ---
brought medication into room. brought suppositories for after told not to. seymour medeiros rn was told about situation
--- NOTE | 2019-07-08 18:04 | NUR ---
patient urinated 100 cc in coats canister. he also had a bm afterwards
--- NOTE | 2019-07-08 19:35 | NUR ---
PT RESTING QUIETLY WITH EYES CLOSED, ASSESSMENT COMPLETED, VITALS STABLE
--- NOTE | 2019-07-08 20:30 | MORECARE ---
CASE MANAGEMENT DISCHARGE SUMMARY PATIENT: JUANA RHOADES UNIT: [id number] ADM DATE: 07/06/19 AGE: 74 : 47 SEX: M ROOM/BED: D.2306 AUTHOR: MANDY HENRIQUEZ PHYSICIAN: REFERRING PHYSICIAN: MAGUE HIGGINS DO DATE OF SERVICE: 07/08/19 Discharge Plan Patient Name: JUANA RHOADES [facility] [facility] 1945 Planned Disposition: Anticipated Discharge Date: Discharge Date: Expected LOS: Initial Reviewer: [email or web address] Initial Review Date: 07/06/2019 Generated: 07/08/19 9:30 pm Patient Name: JUANA RHOADES Page [id number] at 2029 All edits/amendments must be made on the electronic document DICTATION DATE: 07/08/192029 GAS ENGINE OPERATOR GENERATORS: AUTUMN 07/08/192029 RPT#: [id number] DC DATE: STATUS: ADM IN [facility] [address] [place] [address] END OF REPORT
--- NOTE | 2019-07-08 20:37 | MORECARE ---
CASE MANAGEMENT DISCHARGE SUMMARY PATIENT: JUANA RHOADES UNIT: [id number] ADM DATE: 07/06/19 AGE: 74 : 47 SEX: M ROOM/BED: D.2306 AUTHOR: MANDY HENRIQUEZ PHYSICIAN: REFERRING PHYSICIAN: AMGUE HIGGINS DO DATE OF SERVICE: 07/08/19 Discharge Plan Patient Name: JUANA RHOADES Facility: [facility]:[place] : 1945 Planned Disposition: Anticipated Discharge Date: Discharge Date: Expected LOS: Initial Reviewer: [email or web address] Initial Review Date: 07/06/2019 Generated: 07/08/19 9:36 pm Comments DCP- Discharge Planning Updated by [email or web address]: Marylou Bridges on 07/08/19 7:[address] LATE ENTRY 07/07/19 Patient Name: JUANA RHOADES Admission Status: ER Accout number: [id number] Admission Date: 07-06-2019 : 1945 Admission Diagnosis: Attending: MAGUE HIGGINS Current LOS: 1 Anticipated DC Date: Planned Disposition: Primary Insurance: [employer] [facility] Discharge Planning Comments: CM met with patient at bedside after explaining CM role and obtaining verbal consent. Patient lives at home with his where he is independent with his care and plans to return there upon discharge. Patient feels this would be a safe discharge. CM discussed availability / needs of home health and medical equipment. Patient denies any discharge needs at this time. Patient states he will have his family drive him home upon discharge. CM will continue to follow and assist as needed with discharge planning / needs. Overhead Crane Inspector: Marylou Bridges DCPIA - Discharge Planning Initial Assessment Updated by [email or web address]: Marylou Bridges on 07/08/19 8:32 pm * Is the patient Alert and Oriented? Yes * How many steps to enter\exit or inside your home? * PCP ED[facility]D * Pharmacy [facility] * Preadmission Environment Home with Family * ADLs Independent * Other Equipment WALKER, CANE * List name and contact numbers for known caregivers / representatives who currently or will assist patient after discharge: PORTER RHOADES - SPOUSE - [phone] * Verbal permission to speak to the caregivers and representatives has been obtained from the patient. Yes * Community resources currently utilized None * Additional services required to return to the preadmission environment? No * Can the patient safely return to the preadmission environment? Yes * Has this patient been hospitalized within the prior 30 days at any hospital? No Last DP export: 07/08/19 7:30 p Patient Name: JUANA RHOADES Page [phone] at 2037 All edits/amendments must be made on the electronic document DICTATION DATE: 07/08/192035 MANAGING COGNITIVE ENGINEER: AUTUMN 07/08/192035 RPT#: [id number] DC DATE: STATUS: ADM IN [facility] [address] [place] [address] END OF REPORT
--- NOTE | 2019-07-08 21:00 | NUR ---
PT C/O NOT BEING ABLE TO VOID, STATES HE FEELS LIKE HE NEEDS TO VOID BUT UNABLE TO
--- NOTE | 2019-07-08 21:30 | NUR ---
PT LYING IN BED, SCANNED BLADDER, SCANNER SHOWS 843 ML IN BLADDER, GIVEN MORPHINE 2 MG IV FOR PAIN, PLACED 18 FRECH PEREZ CATH WITH SOME DIFFICULTY, SMALL AMOUNT OF BLOOD AROUND SITE, DRAINED APPROX 800- 850 CC'S, PT STATES RELIEF
--- NOTE | 2019-07-08 23:11 | NUR ---
PT RESTING QUIETLY, PEREZ INTACT DRAING CLEAR YELLOW URINE, VITALS STABLE
[2019-07-09] VITALS (12 sets, daily range): BP systolic 131–166; BP diastolic 74–105
--- NOTE | 2019-07-09 01:00 | NUR ---
PT SLEEPING SOUNDLY, NO DISTRESS NOTED, PEREZ DRAINING TO BSD
--- NOTE | 2019-07-09 04:00 | NUR ---
pt remains asleep, vitals stable, no distress noted
[2019-07-09 04:21] LABS: BASOPHILS 0.3 % (0-2); EOSINOPHILS 3.8 % (0-7); HEMATOCRIT 44.5 % (42.0-54.0); HEMOGLOBIN 14.5 g/dL (13.5-17.5); IMMATURE GRANULOCYTES 0.7 % (0-5); LYMPHOCYTES 15.2 % (15-50); MCH 26.8 pg (26.0-34.0); MCHC 32.6 g/dL (31.0-37.0); MCV 82.3 fL (80.0-100.0); MEAN PLATELET VOLUME 9.6 fL (7.4-10.4); MONOCYTES 14.1 % (2-11); NEUTROPHILS 65.9 % (40-80); PLATELET COUNT 214 10x3/uL (130-400); RBC 5.41 10x6/uL (4.20-6.10); WBC 7.2 10x3/uL (4.8-10.8)
[2019-07-09 04:37] LABS: CALC OSMOLALITY 277 mosm/kg (275-300); CARBON DIOXIDE 29.8 mmol/L (21.0-32.0); CHLORIDE - SERUM 104 mmol/L (98-107); CREATININE - SERUM 0.9 mg/dL (0.6-1.3); GLUCOSE 107 mg/dL (74-106); MAGNESIUM - SERUM 2.3 mg/dL (1.8-2.4); POTASSIUM - SERUM 4.3 mmol/L (3.5-5.1); SODIUM 140 mmol/L (136-145); UREA NITROGEN 11 mg/dL (7-18); eGFR NON AFRICAN AMERICAN 88 mL/min (90-120)
--- NOTE | 2019-07-09 06:00 | NUR ---
pt awake, sitting on side of bed, states he slept better than he has in a long time
--- NOTE | 2019-07-09 07:00 | NUR ---
AWAKE AND ALERT VERY TALKATIVE. SKIN WARM AND DRY. DENIES PAIN. PEREZ CATH PATENT DRAINING CLEAR YELLOW URINE. MONITOR SR. IV RIGHT AC SALINE LOCKED. NO REDNESS OR SWELLING NOTED.
--- NOTE | 2019-07-09 08:00 | NUR ---
BREAKFAST TRAY SERVED. VERY TALKATIVE. NO DISTRESS
--- NOTE | 2019-07-09 09:00 | NUR ---
here. patient extremely talkative. po meds taken without difficulty
--- NOTE | 2019-07-09 10:00 | NUR ---
chg bath given per . hair washed oral care done. patient up in chair at bedside. ambulates with unsteady gait. states patient is confused not providing correct information.
--- NOTE | 2019-07-09 10:57 | CN ---
PATIENT NAME:JUANA RHOADES MEDICAL RECORD: [id number] : 49 LOCATION:[id number] ADMIT DATE: 07/06/19 ACCOUNT: [id number] CONSULTING PHYSICIAN: EMILIANO RIGGS MD REFERRING PHYSICIAN: MAGUE HIGGINS DO DATE OF CONSULTATION: 07/08/2019 IDENTIFYING DATA: The patient is 74 years old and he is admitted to the hospital secondary to some confusion and agitation. CHIEF COMPLAINT: None. HISTORY OF PRESENT ILLNESS: The patient apparently went to the Emergency Room somewhat agitated, somewhat confused and insisting he is unable to void. The patient apparently was in the Emergency Room at [facility] where they put a catheter in to him, but then he left against medical advice. He wants to have a TURP. I am consulted because while on the medical floor. He was very agitated, disruptive, aggressive, threatening, in fact pulled the computer off the wall. The patient is calm and cooperative when I speak to him. He is also fully oriented. He is angry with the urologist and some of the nursing staff for reasons that I am not clear about. He tells me that he is accustomed to taking 9 mg of Xanax a day and that he has done that from his family doctor for years. He also tells me that he really does not drink very much. He drinks a fifth of alcohol a week and some wine along with that. He does not think that is excessive. He denies drug use. His urine drug screen is positive for benzodiazepine and opiate. He does not know what a benzodiazepine is, but says that he takes Ambien for sleep and has for 20-30 years. ASSESSMENT: Encephalopathy. PLAN: The patient will be given a scheduled dose of Librium for alcohol withdrawal along with thiamine and folate. In addition to this, I am going to treat him with a low dose of Seroquel to help with his thought disorganization. I think that this is a reversible delirium. I do not think he has a serious or advanced dementia at this point. I would recommend supportive care and a referral to an outpatient setting once medically stabilized. TRANSINT:[id number] Voice Confirmation ID: [id number] DOCUMENT ID: [id number] EMILIANO RIGGS MD at 1057 CC: [id number] DICTATION DATE: 07/08/19 1527 RETAIL CUSTODIAL ASSOCIATE: 07/08/19 1731 ADM IN [facility] [address] [facility] [id number]
--- NOTE | 2019-07-09 11:30 | NUR ---
lunch tray served states he eats slowly just to leave.
--- NOTE | 2019-07-09 13:20 | NUR ---
patient states he is fixing to have a melt down requesting all the drugs he can have. ativan 1 mg iv given.
--- NOTE | 2019-07-09 14:00 | NUR ---
patient loud states he has to leave now and get a turp or he will . trying to pull everything off. patient wants to sign out and leave to go to another hospitalt to get a turp so he will not to night. patient stubbling in room loud inapprioately behavior. geodon 20mg im given. patient states is going to throw up he needs nausea meds. zofran po given.
--- NOTE | 2019-07-09 14:20 | NUR ---
patient requires repeat instruction. ambulating in room with unsteady gait, reminded to call nurse when up. found patient ambulating in room.
--- NOTE | 2019-07-09 14:39 | NUR ---
report called to rios on med surg
--- NOTE | 2019-07-09 15:09 | NUR ---
PT ARRIVES TO ROOM VIA WHEELCHAIR ESCORTED BY ICU STAFF AND . PT ANSWERS ALL QUESTIONS APPROPRIATLEY. ALL FALL PRECAUTIONS ARE IN PLACE. PT EDUCATED ON CALLING FOR NEEDS AND NURSE CALL LIGHT. PT AND PT FAMILY MEMBER VERBALIZE UNDERSTANDING. VSS. SEE FLOWSHEET. PEREZ CATHETER NOTED AND DRAINING WITHOUT DIFFICULTY. CLEAR YELLOW URINE NOTED TO COLLECTION BAG. BED IS IN THE LOWEST POSITION. CALL LIGHT AND BEDSIDE TABLE ARE WITHIN REACH. ROOM NEAR NURSE STATIION. PT AND PT FAMILY DENY FURTHER NEEDS. WILL CONT TO MONITR.
--- NOTE | 2019-07-09 19:00 | NUR ---
BEDSIDE REPORT RECEIVED AND CARE OF PT ASSUMED. PT JHONATHAN IN HIGH CORMIER'S POSITION VISITING WITH SPOUSE. IV TO RIGHT FA PATENT WITH LEVAQUIN INFUSING. PEREZ CATHETER DRAINING TO GRAVITY WITH YELLOW URINE IN COLLECTION BAG. WILL MONITOR FOR NEEDS.
--- NOTE | 2019-07-09 20:00 | NUR ---
PT REQUESTED TO SIGN FORM TO NOT HAVE BED ALARM ON. READ FORM TO PT AND SPOUSE PRIOR TO HIM SIGNING.
--- NOTE | 2019-07-09 20:58 | NUR ---
HS MEDICATIONS GIVEN TO INCLUDE ATIVAN 1 MG PER REQUEST FOR AGGITATION.
--- NOTE | 2019-07-09 21:10 | NUR ---
PT PULLED OUT IV WITH CATHETER TIP INTACT. RE-SITED TO RIGHT WRIST USING 20 GUAGE CATHETER. SALINE LOCKED.
--- NOTE | 2019-07-09 22:12 | NUR ---
GAVE GEODON 20 MG IM PER REQUEST FOR AGGITATION.
--- NOTE | 2019-07-09 22:48 | NUR ---
GAVE ATIVAN 1 MG IVP FOR AGGITATION. WILL CONTINUE TO MONITOR FOR NEEDS.
--- NOTE | 2019-07-10 01:50 | NUR ---
PT CAME STUMBLING OUT OF ROOM CARRYING HIS PEREZ BAG C/O UNABLE TO BREATH. SPO2 96%...PT ADMITS THAT HE WAS HAVING A BAD DREAM. VERY AGGITATED AND ASKING FOR MED. GAVE ATIVAN 1 MG IVP FOR AGGITATION. WILL MONITOR FOR EFFECTIVENESS.
[2019-07-10 04:00] VITALS: BP 135/76
[2019-07-10 05:43] LABS: BASOPHILS 0.3 % (0-2); EOSINOPHILS 3.6 % (0-7); HEMATOCRIT 43.9 % (42.0-54.0); HEMOGLOBIN 14.5 g/dL (13.5-17.5); IMMATURE GRANULOCYTES 0.5 % (0-5); LYMPHOCYTES 18.2 % (15-50); MCH 27.1 pg (26.0-34.0); MCV 82.1 fL (80.0-100.0); MEAN PLATELET VOLUME 9.5 fL (7.4-10.4); MONOCYTES 10.7 % (2-11); NEUTROPHILS 66.7 % (40-80); PLATELET COUNT 231 10x3/uL (130-400); RBC 5.35 10x6/uL (4.20-6.10); RDW 17.2 % (11.5-14.5)
[2019-07-10 05:47] LABS: WBC 9.4 10x3/uL (4.8-10.8)
[2019-07-10 06:15] LABS: ALBUMIN 3.1 g/dL (3.4-5.0); ALKALINE PHOSPHATASE 76 U/L (30-120); ALT (SGPT) 51 U/L (10-68); BILIRUBIN - TOTAL 0.17 mg/dL (0.2-1.3); CALC OSMOLALITY 278 mosm/kg (275-300); CALCIUM 8.8 mg/dL (8.5-10.1); CHLORIDE - SERUM 104 mmol/L (98-107); GLUCOSE 106 mg/dL (74-106); MAGNESIUM - SERUM 2.3 mg/dL (1.8-2.4); PHOSPHOROUS 4.4 mg/dL (2.5-4.9); POTASSIUM - SERUM 4.3 mmol/L (3.5-5.1); PROTEIN - SERUM 7.8 g/dL (6.4-8.2); SODIUM 140 mmol/L (136-145); UREA NITROGEN 13 mg/dL (7-18); eGFR NON AFRICAN AMERICAN 78 mL/min (90-120)
[2019-07-10 08:55] VITALS: BP 156/77
--- NOTE | 2019-07-10 09:17 | PN ---
PATIENT:JUANA RHOADES MEDICAL RECORD: [id number] LOCATION:D.MS [facility]222 ADMISSION DATE: 07/06/19 PROGRESS NOTE DATE OF SERVICE: 07/09/2019 SUBJECTIVE: The patient's case was discussed and the chart was reviewed. OBJECTIVE: The patient is fully oriented. His mood is euthymic and he is cooperative. He no longer is making delusional or disorganized statements. In fact, he says that he had the best night's sleep of his life last night. He does not appear to be over sedated. He is hypertensive, but not tachycardic, so I do not think he is experiencing alcohol withdrawal symptoms at this point. ASSESSMENT: Delirium, resolved or resolving. PLAN: I would recommend the Seroquel and Librium be maintained at current doses today and then titrated as appropriate prior to leaving the hospital. TRANSINT:[id number] Voice Confirmation ID: [id number] DOCUMENT ID: [id number] EMILIANO RIGGS MD at 0917 CC: [id number] DICTATION DATE: 07/09/19 1126 NEW CAR INSPECTOR: 07/09/19 1153 ADM IN [facility] [address] [place] [address]
--- NOTE | 2019-07-10 09:19 | NUR ---
PT IS UP AND READY FOR DC, CHANGED HIS CLOTHES WITH PEREZ INTACT AND READY TO LEAVE, EXPLAINED TO PT THAT 'S HAVE NOT BEEN ON THE FLOOR TO DO ROUNDS YET BUT WILL LET HIM KNOW WHEN THEY DO. PT IS SITTING AT EDGE OF BED CL IN REACH CONTINUE WITH PLAN OF CARE
[2019-07-10 14:15] VITALS: BP 121/61
--- NOTE | 2019-07-10 16:32 | NUR ---
I have reviewed this patient and I concur with the Shift Assessment completed by the Licensed Practical Nurse today this shift.
--- NOTE | 2019-07-10 19:00 | NUR ---
BEDSIDE REPORT RECEIVED AND CARE OF PT ASSUMED. PT SITTING UP ON SIDE OF BED...FULLY DRESSED WITH PEREZ TUBING COMING OUT OF PANTS LEG. IV TO LEFT FA PATENT WITH NS INFUSING AT 50 ML/HR. PEREZ CATHETER PATENT WITH YELLOW URINE IN COLLECTION BAG.
[2019-07-10 19:08] VITALS: BP 100/56
[2019-07-10 20:00] VITALS: BP 99/53
--- NOTE | 2019-07-10 20:03 | NUR ---
HS MEDICATIONS GIVEN TO INCLUDE ATIVAN 1 MG IVP PER PRN ORDER, PER PT REQUEST.
--- NOTE | 2019-07-10 20:10 | NUR ---
PAGED ESTEVAN AVENDANO PER PT REQUEST FOR AMBIEN PER HOME MED LIST....MED HAD FALLEN OFF AUG. RECEIVED ORDER TO RENEW.
--- NOTE | 2019-07-10 20:31 | NUR ---
GAVE AMBIEN 10 MG PO PER NEW ORDER.
--- NOTE | 2019-07-10 22:00 | NUR ---
PT STATES THAT HE NEEDS MORE AMBIEN..."IT'S NOT WORKING". EXPLAINED THAT THIS WAS NOT POSSIBLE...PT THEN STARTED ACCUSING THIS NURSE OF GIVEN HIM THE WRONG MED...TRIED TO RE-ORIENT PT TO REALITY...THREATENING TO LEAVE AMA VIA CAB. HE IS TALKING TO HIS ON THE PHONE NOW.
--- NOTE | 2019-07-10 22:06 | NUR ---
PT BECOMING COMBATIVE AND THREATENING TO CALL 911 OR A CAB TO LEAVE HOSPITAL. HE IS ON THE PHONE WITH HIS SPOUSE AND SHE IS BEGGING HIM TO TAKE THE PRN MEDS THAT I AM OFFERING AND STAY TILL MORNING. PT FINALLY AGREED TO TAKE ATIVAN IVP AND XAVIER IM. GIVEN WITH X2 NONDESTRUCTIVE TESTER'S IN ROOM FOR SUPPORT.
--- NOTE | 2019-07-10 22:13 | NUR ---
CALLED PORTER, PT'S AND SHE WANTS US TO DO WHATEVER IT TAKES TO KEEP HIM FROM LEAVING HOSPITAL AMA. EXPLAINED TO HER THE PRN MEDS HE HAS BEEN GIVEN SO FAR.
--- NOTE | 2019-07-11 00:30 | NUR ---
PT AWAKE AND ONCE AGAIN REQUESTING MEDICATION....NAUSEA, ANXIETY, AND PAIN. GAVE ATIVAN 1 MG IVP, ZOFRAN 4 MG IVP, AND MORPHINE 2 MG IVP PER PRN ORDER. PT REQUESTING THAT I CALL MD NOW AND GET HIM XAJULIOX WELL....ENCOURAGED TO RELAX AND LET THESE MEDS WORK FIRST.
--- NOTE | 2019-07-11 01:01 | NUR ---
PT SLEEPING...SNORING AT THIS TIME. EVERY TIME HE WAKES UP HE COMPLAINS THAT HE ISN'T GETTING ANY SLEEP.
--- NOTE | 2019-07-11 04:10 | NUR ---
PT STUMBLING OUT OF ROOM DRAGGING HIS PEREZ BAG ON THE GROUND BEHIND HIM. GOT HIM BACK TO HIS BED AND ATTEMPTED TO RE-ORIENT. PT REQUESTING ATIVAN AND GEODON. GAVE PER PRN ORDERS. POSITIONED FOR COMFORT.
[2019-07-11 06:00] LABS: BASOPHILS 0.4 % (0-2); EOSINOPHILS 3.5 % (0-7); HEMATOCRIT 39.5 % (42.0-54.0); HEMOGLOBIN 12.9 g/dL (13.5-17.5); IMMATURE GRANULOCYTES 0.4 % (0-5); LYMPHOCYTES 17.9 % (15-50); MCH 26.8 pg (26.0-34.0); MCHC 32.7 g/dL (31.0-37.0); MONOCYTES 8.3 % (2-11); NEUTROPHILS 69.5 % (40-80); PLATELET COUNT 213 10x3/uL (130-400); RBC 4.82 10x6/uL (4.20-6.10); RDW 17.1 % (11.5-14.5); WBC 9.9 10x3/uL (4.8-10.8)
[2019-07-11 06:21] LABS: ALBUMIN 2.9 g/dL (3.4-5.0); ALKALINE PHOSPHATASE 69 U/L (30-120); ALT (SGPT) 45 U/L (10-68); CALC OSMOLALITY 283 mosm/kg (275-300); CALCIUM 8.5 mg/dL (8.5-10.1); CARBON DIOXIDE 28.4 mmol/L (21.0-32.0); CHLORIDE - SERUM 104 mmol/L (98-107); CREATININE - SERUM 0.9 mg/dL (0.6-1.3); GLUCOSE 98 mg/dL (74-106); MAGNESIUM - SERUM 2.2 mg/dL (1.8-2.4); PHOSPHOROUS 4.8 mg/dL (2.5-4.9); POTASSIUM - SERUM 4.1 mmol/L (3.5-5.1); PROTEIN - SERUM 6.5 g/dL (6.4-8.2); SODIUM 141 mmol/L (136-145); eGFR NON AFRICAN AMERICAN 88 mL/min (90-120)
[2019-07-11 06:27] LABS: UREA NITROGEN 20 mg/dL (7-18)
--- NOTE | 2019-07-11 06:50 | NUR ---
PT SITTING UP ON SIDE OF BED REQUESTING TO SPEAK TO THE COMPUTER NETWORK SUPPORT SPECIALIST. JENELLE NOTIFIED OF PT'S REQUEST.
--- NOTE | 2019-07-11 08:00 | NUR ---
ASSESSMENT PER FLOW SHEET. PT IS WITHOUT DISTRESS.DENIES NEEDS AT PRESENT. CALL LIGHT IN REACH
[2019-07-11 08:24] VITALS: BP 132/66
--- NOTE | 2019-07-11 10:00 | NUR ---
REFUSES REMOVAL OF PEREZ TILL HE TALKS WITH AND SEES
[2019-07-11 12:42] VITALS: BP 131/58
--- NOTE | 2019-07-11 15:58 | NUR ---
HAS SET UP IN CHAIR AND AT BEDSIDE. FAMILY IN ROOM.MONITOR
[2019-07-11 16:47] VITALS: BP 125/45
--- NOTE | 2019-07-11 18:43 | NUR ---
PEREZ DCD ORDERED WITH 700CC OF URINE EMTIED FROM BAG.CATH TIP INTACT.PT TOLERATED WELL.
--- NOTE | 2019-07-11 19:00 | NUR ---
BEDSIDE REPORT RECEIVED AND CARE OF PT ASSUMED. PT SITTING UP IN CHAIR AT THIS TIME. PEREZ CATHETER HAS BEEN REMOVED. IV TO LEFT FA PATENT WITH NS INFUSING AT 50 ML/HR. WILL MONITOR FOR NEEDS.
[2019-07-11 19:30] VITALS: BP 122/72
--- NOTE | 2019-07-11 19:39 | NUR ---
GAVE ZOFRAN 4 MG IVP PER PT REQUEST FOR NAUSEA.
--- NOTE | 2019-07-11 19:40 | NUR ---
PT VOIDED 25 ML AND YELLING THAT HE NEEDS THE PEREZ BACK. BLADDER SCAN REVEALED 385 RETAINED URING. CALLED JM SMITH WHO STATED THAT HE WAS NOT WORRIED UNTIL ABOUNT REACHED >500 ML.
--- NOTE | 2019-07-11 20:45 | NUR ---
PT URINATED 325 ML YELLOW URINE.
--- NOTE | 2019-07-11 21:00 | NUR ---
HS MEDICATIONS GIVEN TO INCLUDE 10 MG AMBIEN. 2ND RN, TAMI ESCOBEDO,JACQUELINE WITNESSED WHAT MEDS PT WAS GIVEN, AND THAT PT SWALLOWED MEDS.
--- NOTE | 2019-07-11 21:30 | NUR ---
PT REQUESTING TO HAVE SUPPOSITORIES.."CAN'T HAVE BM WITHOUT THEM". TOLD PT TO ASK MD IN AM ABOUT ORDERING SUPPOSITORIES. SHORTLY AFTER PT HAD LARGE SEMI INCONTINENT BM...ALL BEDDING AND GOWN CHANGED. PT'S ASSISTED IN CLEANING HIM UP.
--- NOTE | 2019-07-11 21:46 | NUR ---
PT URINATED 225 YELLOW URINE.
[2019-07-12 06:04] LABS: BASOPHILS 0.4 % (0-2); EOSINOPHILS 4.5 % (0-7); HEMATOCRIT 41.7 % (42.0-54.0); HEMOGLOBIN 13.5 g/dL (13.5-17.5); IMMATURE GRANULOCYTES 0.8 % (0-5); LYMPHOCYTES 18.3 % (15-50); MCH 26.6 pg (26.0-34.0); MCHC 32.4 g/dL (31.0-37.0); MCV 82.2 fL (80.0-100.0); MEAN PLATELET VOLUME 10.2 fL (7.4-10.4); MONOCYTES 9.9 % (2-11); NEUTROPHILS 66.1 % (40-80); PLATELET COUNT 213 10x3/uL (130-400); RBC 5.07 10x6/uL (4.20-6.10); RDW 17.6 % (11.5-14.5); WBC 7.5 10x3/uL (4.8-10.8)
[2019-07-12 06:40] LABS: ALBUMIN 3.1 g/dL (3.4-5.0); ALKALINE PHOSPHATASE 76 U/L (30-120); ALT (SGPT) 41 U/L (10-68); CALC OSMOLALITY 286 mosm/kg (275-300); CALCIUM 8.5 mg/dL (8.5-10.1); CARBON DIOXIDE 30.9 mmol/L (21.0-32.0); CHLORIDE - SERUM 107 mmol/L (98-107); CREATININE - SERUM 0.7 mg/dL (0.6-1.3); GLUCOSE 97 mg/dL (74-106); POTASSIUM - SERUM 4.2 mmol/L (3.5-5.1); PROTEIN - SERUM 6.6 g/dL (6.4-8.2); SODIUM 144 mmol/L (136-145); eGFR NON AFRICAN AMERICAN > 90 mL/min (90-120)
[2019-07-12 06:48] LABS: UREA NITROGEN 12 mg/dL (7-18)
[2019-07-12 08:59] VITALS: BP 144/75
--- NOTE | 2019-07-12 09:49 | MORECARE ---
CASE MANAGEMENT DISCHARGE SUMMARY PATIENT: JUANA RHOADES UNIT: [id number] ADM DATE: 07/06/19 AGE: 74 : [birth year] SEX: M ROOM/BED: D.2222 AUTHOR: MANDY HENRIQUEZ PHYSICIAN: REFERRING PHYSICIAN: MAGUE HIGGINS DO DATE OF SERVICE: 07/12/19 Discharge Plan Patient Name: JUANA RHOADES Facility: [facility]:[place] : 1945 Planned Disposition: Anticipated Discharge Date: Discharge Date: Expected LOS: Initial Reviewer: [email or web address] Initial Review Date: 07/06/2019 Generated: 07/12/19 10:48 am Comments DCP- Discharge Planning Updated by [email or web address]: Jo Park on 07/12/19 8:[address] Patient Name: JUANA RHOADES Encounter No: [id number] : 1945 Primary Insurance: [employer] [facility] Anticipated DC Date: Planned Disposition: External Planned Provider: : DCP follow-up note: Patient and family in agreement with discharge plan. No changes to plan. Patient states he is ready to go home. He denies discharge needs. is at bedside. She also denies discharge needs. Case management will follow and assist as needed. Jo Park DCP- Discharge Planning Updated by [email or web address]: Marylou Bridges on 07/08/19 7:[address] LATE ENTRY 07/07/19 Patient Name: JUANA RHOADES Admission Status: ER Accout number: [id number] Admission Date: 07-06-2019 : 1945 Admission Diagnosis: Attending: MAGUE HIGGINS Current LOS: 1 Anticipated DC Date: Planned Disposition: Primary Insurance: [employer] [facility] Discharge Planning Comments: CM met with patient at bedside after explaining CM role and obtaining verbal consent. Patient lives at home with his where he is independent with his care and plans to return there upon discharge. Patient feels this would be a safe discharge. CM discussed availability / needs of home health and medical equipment. Patient denies any discharge needs at this time. Patient states he will have his family drive him home upon discharge. CM will continue to follow and assist as needed with discharge planning / needs. Senior It Assistant: Marylou SHAFER - Discharge Planning Initial Assessment Updated by [email or web address]: Marylou Bridges on 07/08/19 8:32 pm * Is the patient Alert and Oriented? Yes * How many steps to enter\exit or inside your home? * PCP [facility] * Pharmacy [facility] * Preadmission Environment Home with Family * ADLs Independent * Other Equipment WALKER, CANE * List name and contact numbers for known caregivers / representatives who currently or will assist patient after discharge: PORTER RHOADES - SPOUSE - [phone] * Verbal permission to speak to the caregivers and representatives has been obtained from the patient. Yes * Community resources currently utilized None * Additional services required to return to the preadmission environment? No * Can the patient safely return to the preadmission environment? Yes * Has this patient been hospitalized within the prior 30 days at any hospital? No Coverage Notice Reviewer: [id number] [place] Notice Issued Date-Time: 07/12/2019 9:48 Notice Type: IM Discharge Notice Notice Delivered To: Patient Relationship to Patient: Self Manager Motor Name: Delivery Method: - Delaney Days: Prior Verbal Notification: Recipient Understood Notice: Recipient Signature: Med Rec Note Co-signed by Attending: Coverage Notice Comment: Last DP export: 07/08/19 7:37 p Patient Name: JUANA RHOADES Page [id number] at 0949 All edits/amendments must be made on the electronic document DICTATION DATE: 07/12/19947 SNACK STEWARDESS: AUTUMN 07/12/19947 RPT#: [id number] DC DATE: STATUS: ADM IN [facility] [address] [place] [address] END OF REPORT
--- NOTE | 2019-07-12 11:27 | NUR ---
DISCHARGE INSTRUCTIONS,STATES UNDERSTANDING. IV DCD WITH CATH TIP INTACT.
--- NOTE | 2019-07-12 11:27 | NUR ---
LEFT UNIT VIA WHEELCHAIR FOR TRANSPORT HOME
--- NOTE | 2019-07-13 16:55 | MORECARE ---
CASE MANAGEMENT DISCHARGE SUMMARY PATIENT: JUANA RHOADES UNIT: [id number] ADM DATE: 07/06/19 AGE: 74 : [birth year] SEX: M ROOM/BED: D.2222 AUTHOR: MANDY HENRIQUEZ PHYSICIAN: REFERRING PHYSICIAN: MAGUE HIGGINS DO DATE OF SERVICE: 07/13/19 Discharge Plan Patient Name: JUANA RHOADES Facility: [facility]:[place] : 1945 Planned Disposition: Home Anticipated Discharge Date: Discharge Date: 07/12/2019 Expected LOS: 0 Initial Reviewer: [email or web address] Initial Review Date: 07/06/2019 Generated: 07/13/19 5:55 pm Comments DCP- Discharge Planning Updated by [id number]: Jo Park on 07/12/19 8:[address] Patient Name: JUANA RHOADES Encounter No: [id number] : 1945 Primary Insurance: [address] [facility] Anticipated DC Date: Planned Disposition: External Planned Provider: : DCP follow-up note: Patient and family in agreement with discharge plan. No changes to plan. Patient states he is ready to go home. He denies discharge needs. is at bedside. She also denies discharge needs. Case management will follow and assist as needed. Jo Park DCP- Discharge Planning Updated by [email or web address]: Marylou Bridges on 07/08/19 7:[address] LATE ENTRY 07/07/19 Patient Name: JUANA RHOADES Admission Status: ER Accout number: [id number] Admission Date: 07-06-2019 : 1945 Admission Diagnosis: Attending: MAGUE HIGGINS Current LOS: 1 Anticipated DC Date: Planned Disposition: Primary Insurance: [address] [facility] Discharge Planning Comments: CM met with patient at bedside after explaining CM role and obtaining verbal consent. Patient lives at home with his where he is independent with his care and plans to return there upon discharge. Patient feels this would be a safe discharge. CM discussed availability / needs of home health and medical equipment. Patient denies any discharge needs at this time. Patient states he will have his family drive him home upon discharge. CM will continue to follow and assist as needed with discharge planning / needs. Veterinary Surgery Technologist: Marylou Bridges DCPIA - Discharge Planning Initial Assessment Updated by [email or web address]: Marylou Bridges on 07/08/19 8:32 pm * Is the patient Alert and Oriented? Yes * How many steps to enter\exit or inside your home? * PCP [facility] * Pharmacy [facility] * Preadmission Environment Home with Family * ADLs Independent * Other Equipment WALKER, CANE * List name and contact numbers for known caregivers / representatives who currently or will assist patient after discharge: PORTER RHOADES - SPOUSE - [phone] * Verbal permission to speak to the caregivers and representatives has been obtained from the patient. Yes * Community resources currently utilized None * Additional services required to return to the preadmission environment? No * Can the patient safely return to the preadmission environment? Yes * Has this patient been hospitalized within the prior 30 days at any hospital? No Coverage Notice Reviewer: [id number] [place] Notice Issued Date-Time: 07/12/2019 9:48 Notice Type: IM Discharge Notice Notice Delivered To: Patient Relationship to Patient: Self Director Of Business Continuity Name: Delivery Method: HAND - Hand Delivered Delaney Days: Prior Verbal Notification: Recipient Understood Notice: Yes Recipient Signature: Yes Med Rec Note Co-signed by Attending: Coverage Notice Comment: IMM explained, signed, given, copy placed in MR Last DP export: 07/12/19 8:49 a Patient Name: JUANA RHODAES Page [phone] at 1655 All edits/amendments must be made on the electronic document DICTATION DATE: 07/13/191654 LOG RAFT WORKER: AUTUMN 07/13/191654 RPT#: [id number] DC DATE:07/12/19 STATUS: DIS IN [facility] [address] [place] [address] END OF REPORT
== END 2019-07-12 11:28 | disposition home or self-care (01) | DRG 698 ==
LOC: D.ER 15:17 → D.MS 17:17 → D.ICU 17:17 → D.M2 19:19 → D.ICU 07-07 08:06 → D.MS 07-09 15:04
PROVIDERS: Emergency Medicine; Internal Medicine Nephrology; ADMIT Family Medicine; ATTEND Family Medicine
DX: T83.518A Infection and inflammatory reaction due to other urinary catheter, initial encounter (principal); G93.41 Metabolic encephalopathy; E87.1 Hypo-osmolality and hyponatremia; N13.9 Obstructive and reflux uropathy, unspecified; N40.0 Benign prostatic hyperplasia without lower urinary tract symptoms; I10 Essential (primary) hypertension; E78.5 Hyperlipidemia, unspecified; K90.0 Celiac disease; Z95.1 Presence of aortocoronary bypass graft; D50.9 Iron deficiency anemia, unspecified; K59.00 Constipation, unspecified

== ENCOUNTER 2019-07-13 14:01 | Emergency (ER) | payer MEDICARE, OTHER ==
[~2019-07-13] VITALS: Ht 172.7 cm; Wt 106.8 kg
[2019-07-13 14:14] VITALS: Ht 172.7 cm; Wt 106.8 kg
[2019-07-13 17:26] LABS: BASOPHILS 0.2 % (0-2); EOSINOPHILS 1.5 % (0-7); HEMATOCRIT 39.1 % (42.0-54.0); HEMOGLOBIN 13.1 g/dL (13.5-17.5); IMMATURE GRANULOCYTES 0.4 % (0-5); LYMPHOCYTES 2.5 % (15-50); MCH 27.1 pg (26.0-34.0); MCHC 33.5 g/dL (31.0-37.0); MCV 80.8 fL (80.0-100.0); MEAN PLATELET VOLUME 9.9 fL (7.4-10.4); MONOCYTES 6.7 % (2-11); NEUTROPHILS 88.7 % (40-80); PLATELET COUNT 182 10x3/uL (130-400); RBC 4.84 10x6/uL (4.20-6.10); RDW 17.1 % (11.5-14.5)
[2019-07-13 17:53] LABS: CALC OSMOLALITY 262 mosm/kg (275-300); CALCIUM 8.4 mg/dL (8.5-10.1); CARBON DIOXIDE 26.6 mmol/L (21.0-32.0); CHLORIDE - SERUM 97 mmol/L (98-107); GLUCOSE 101 mg/dL (74-106); POTASSIUM - SERUM 4.3 mmol/L (3.5-5.1); SODIUM 131 mmol/L (136-145); UREA NITROGEN 12 mg/dL (7-18); eGFR NON AFRICAN AMERICAN 88 mL/min (90-120)
[2019-07-13 17:54] LABS: CREATININE - SERUM 0.9 mg/dL (0.6-1.3)
[2019-07-13 18:00] LABS: ALBUMIN 3.4 g/dL (3.4-5.0); ALKALINE PHOSPHATASE 87 U/L (30-120); ALT (SGPT) 46 U/L (10-68); BILIRUBIN - TOTAL 0.31 mg/dL (0.2-1.3)
[2019-07-13 21:06] VITALS: BP 122/72
== END 2019-07-13 21:07 | disposition other institution (70) ==
LOC: D.ER 14:01
PROVIDERS: Family Medicine
DX: R31.9 Hematuria, unspecified (principal); Z86.73 Personal history of transient ischemic attack (TIA), and cerebral infarction without residual deficits; I10 Essential (primary) hypertension; I25.2 Old myocardial infarction; Z95.1 Presence of aortocoronary bypass graft

== ENCOUNTER 2020-08-22 07:21 | Day surgery (SDC) | payer MEDICARE, OTHER ==
[~2020-08-22] VITALS: Ht 172.7 cm; Wt 115.9 kg
[~2020-08-22 07:21] MED LIST changes: +ATARAX 25 MG TA25 MG PO; +BAYER CHEWABLE81 MG PO
[2020-08-22 07:57] LABS: ALBUMIN 3.4 g/dL (3.4-5.0); ANION GAP 11.7 mmol/L (8-16); BILIRUBIN - TOTAL 0.35 mg/dL (0.2-1.3); CALCIUM 8.6 mg/dL (8.5-10.1); CARBON DIOXIDE 27.5 mmol/L (21.0-32.0); CREATININE - SERUM 1.2 mg/dL (0.6-1.3); POTASSIUM - SERUM 4.2 mmol/L (3.5-5.1); PROTEIN - SERUM 7.3 g/dL (6.4-8.2)
[2020-08-22 08:01] LABS: SARS-CoV-2 ANTIGEN NEGATIVE- SARS-COV-2 (NEGATIVE)
[2020-08-22 08:09] LABS: APTT 29.3 SECONDS (22.8-39.4); INR 1.17 (0.85-1.17); PROTIME 13.8 SECONDS (11.6-15.0)
[2020-08-22 08:20] LABS: BASOPHILS 0.4 % (0-2); EOSINOPHILS 6.5 % (0-7); HEMATOCRIT 40.8 % (42.0-54.0); HEMOGLOBIN 12.7 g/dL (13.5-17.5); IMMATURE GRANULOCYTES 0.4 % (0-5); LYMPHOCYTE ABS# 1.48 10x3/uL (1.32-3.57); LYMPHOCYTES 21.7 % (15-50); MCHC 31.1 g/dL (31.0-37.0); MCV 80.3 fL (80.0-100.0); MEAN PLATELET VOLUME 10.6 fL (7.4-10.4); MONOCYTES 12.3 % (2-11); NEUTROPHILS 58.7 % (40-80); PLATELET COUNT 191 10x3/uL (130-400); RBC 5.08 10x6/uL (4.20-6.10); RDW 16.7 % (11.5-14.5); WBC 6.8 10x3/uL (4.8-10.8)
[2020-08-22 08:24] VITALS: BP 150/82; Ht 172.7 cm; Wt 115.9 kg
[2020-08-22] MEDS ORDERED: MEDROL DOSE PACK4 MG PO (13:02)
[2020-08-22] MEDS ORDERED: HYDROCODON-ACE1 EA10 PO (13:02)
--- NOTE | 2020-08-22 13:49 | NUR ---
1340 PT. REQUESTS A PAIN PILL, STATES PAIN RATED 7/10 NOW, NORCO 10MG PO GIVEN. AT SIDE, TIME FRAME FOR DISCHARGE GIVEN.
--- NOTE | 2020-08-23 08:56 | OP ---
PATIENT NAME: JUANA RHOADES MEDICAL RECORD: [id number] :[birth year] LOCATION:[facility] ADMISSION DATE: SURGEON: STACIA DRUMMOND MD DATE OF OPERATION: 08/22/2020 PREOPERATIVE DIAGNOSIS: Lumbar spinal stenosis L1-L2 and L2-L3 with neurogenic claudication. POSTOPERATIVE DIAGNOSIS: Lumbar spinal stenosis L1-L2 and L2-L3 with neurogenic claudication. PROCEDURE: Lumbar laminotomy, medial facetectomy and foraminotomy at L1-L2, L2-L3 on the left with sublaminar decompression at L1-L2 and L2-L3. DESCRIPTION OF TECHNIQUE: After induction of general endotracheal anesthesia, the patient was rolled prone on a Karl frame. The lumbar spine was prepped and draped in the usual sterile fashion. A fluoroscopic x-ray and spinal needle localized the left L2-L3 interspace. After infiltration with 1:100,000 epinephrine with 1% lidocaine, a stab incision were created with a #11 blade. Series of dilators were used to advance a METRx retractor to the L2-L3 interspace on the left side. A microscope and Midas Boubacar were used to perform laminotomy, medial facetectomy and foraminotomy at L2-L3 on the left. Hypertrophied ligamentum flavum was removed with Cloward rongeurs. The retractor was tilted to the opposite side and hypertrophied ligamentum flavum was removed on the opposite side of the canal. Superiorly, the retractor was wanded superiorly and additional bone material was removed as well as hypertrophied ligamentum flavum on both sides of the canal. This decompressed the L1-L2 and L2-L3 interspace as well. Meticulous hemostasis was maintained throughout. The wound was irrigated with copious amounts of Ancef antibiotic solution. The retractor was removed. The fascia was closed with 2-0 Vicryl suture. Subdermal layers closed with 3-0 Vicryl sutures. The skin was closed with janie. A sterile dressing was applied to the wound. The patient was awakened in good condition and taken to recovery. All counts were reported as correct. ESTIMATED BLOOD LOSS: Minimal. TRANSINT:[id number] Voice Confirmation ID: [id number] DOCUMENT ID: [id number] STACIA DRUMMOND MD at 0856 CC: [id number] DICTATION DATE: 08/22/20 1641 DYE RANGE FEEDER: 08/22/20 2307 [facility] 08/22/20 [place] [id number] [place] [id number]
== END 2020-08-22 16:00 | disposition home or self-care (01) ==
LOC: D.OPS 07:21
PROVIDERS: Anesthesiology; ATTEND Neurological Surgery
DX: M48.062 Spinal stenosis, lumbar region with neurogenic claudication (principal); M48.061 Spinal stenosis, lumbar region without neurogenic claudication; M54.16 Radiculopathy, lumbar region

== ENCOUNTER 2020-08-25 18:16 | Emergency (ER) | payer MEDICARE, OTHER ==
[~2020-08-25] VITALS: Ht 172.7 cm; Wt 118.2 kg
[~2020-08-25 18:16] MED LIST changes: +HYDROCODON-ACE1 EA10 PO; +MEDROL DOSE PACK4 MG PO
[2020-08-25 18:24] VITALS: Ht 172.7 cm; Wt 118.2 kg
[2020-08-25 19:01] LABS: BASOPHILS 0.2 % (0-2); EOSINOPHILS 0.8 % (0-7); HEMATOCRIT 41.6 % (42.0-54.0); HEMOGLOBIN 13.2 g/dL (13.5-17.5); IMMATURE GRANULOCYTES 0.4 % (0-5); LYMPHOCYTE ABS# 1.35 10x3/uL (1.32-3.57); LYMPHOCYTES 12.8 % (15-50); MCHC 31.7 g/dL (31.0-37.0); MCV 78.8 fL (80.0-100.0); MEAN PLATELET VOLUME 10.5 fL (7.4-10.4); MONOCYTES 13.2 % (2-11); NEUTROPHIL ABS# 7.66 10x3/uL (1.78-5.38); NEUTROPHILS 72.6 % (40-80); PLATELET COUNT 179 10x3/uL (130-400); RBC 5.28 10x6/uL (4.20-6.10); RDW 16.5 % (11.5-14.5); WBC 10.5 10x3/uL (4.8-10.8)
[2020-08-25 19:02] LABS: BILIRUBIN NEGATIVE (NEGATIVE); KETONE NEGATIVE (NEGATIVE); NITRITE NEGATIVE (NEGATIVE); UROBILINOGEN NORMAL mg/dL (< 2)
[2020-08-25 19:11] LABS: CALC OSMOLALITY 273 mosm/kg (275-300); CARBON DIOXIDE 29.2 mmol/L (21.0-32.0); CHLORIDE - SERUM 99 mmol/L (98-107); GLUCOSE 115 mg/dL (74-106); POTASSIUM - SERUM 3.8 mmol/L (3.5-5.1); SODIUM 136 mmol/L (136-145); UREA NITROGEN 16 mg/dL (7-18); eGFR NON AFRICAN AMERICAN 78 mL/min (90-120)
[2020-08-25 19:20] LABS: ALBUMIN 3.7 g/dL (3.4-5.0); ALKALINE PHOSPHATASE 80 U/L (30-120); ALT (SGPT) 42 U/L (10-68); AMYLASE - SERUM 43 U/L (25-115); LIPASE 60 U/L (73-393); PROTEIN - SERUM 8.3 g/dL (6.4-8.2); TROPONIN-I < 0.017 ng/mL (0.000-0.060)
[2020-08-25] MEDS ORDERED: CHRONULAC30 ML PO (20:42)
[2020-08-25 21:03] VITALS: BP 178/86
== END 2020-08-25 21:36 | disposition home or self-care (01) ==
LOC: D.ER 18:16
PROVIDERS: Family Medicine
DX: R10.9 Unspecified abdominal pain (principal); D64.9 Anemia, unspecified; K59.00 Constipation, unspecified; E11.65 Type 2 diabetes mellitus with hyperglycemia; M54.9 Dorsalgia, unspecified

== ENCOUNTER 2020-08-27 16:58 | Emergency (ER) | payer MEDICARE, OTHER ==
[~2020-08-27] VITALS: Ht 172.7 cm; Wt 118.2 kg
[~2020-08-27 16:58] MED LIST changes: +CHRONULAC30 ML PO
[2020-08-27 17:15] VITALS: Ht 172.7 cm; Wt 118.2 kg
[2020-08-27 19:32] LABS: BASOPHILS 0.2 % (0-2); EOSINOPHILS 1.6 % (0-7); HEMATOCRIT 43.4 % (42.0-54.0); HEMOGLOBIN 13.9 g/dL (13.5-17.5); IMMATURE GRANULOCYTES 0.3 % (0-5); LYMPHOCYTE ABS# 1.46 10x3/uL (1.32-3.57); LYMPHOCYTES 12.4 % (15-50); MCV 77.9 fL (80.0-100.0); MEAN PLATELET VOLUME 10.3 fL (7.4-10.4); MONOCYTES 14.6 % (2-11); NEUTROPHIL ABS# 8.37 10x3/uL (1.78-5.38); NEUTROPHILS 70.9 % (40-80); PLATELET COUNT 183 10x3/uL (130-400); RBC 5.57 10x6/uL (4.20-6.10); RDW 16.5 % (11.5-14.5); WBC 11.8 10x3/uL (4.8-10.8)
[2020-08-27 19:48] LABS: CALC OSMOLALITY 269 mosm/kg (275-300); CALCIUM 8.9 mg/dL (8.5-10.1); CARBON DIOXIDE 24.7 mmol/L (21.0-32.0); CHLORIDE - SERUM 99 mmol/L (98-107); CREATININE - SERUM 0.9 mg/dL (0.6-1.3); GLUCOSE 116 mg/dL (74-106); POTASSIUM - SERUM 3.3 mmol/L (3.5-5.1); SODIUM 134 mmol/L (136-145); UREA NITROGEN 14 mg/dL (7-18); eGFR NON AFRICAN AMERICAN 88 mL/min (90-120)
[2020-08-27 19:57] LABS: ALBUMIN 3.5 g/dL (3.4-5.0); ALKALINE PHOSPHATASE 84 U/L (30-120); ALT (SGPT) 80 U/L (10-68); AMYLASE - SERUM 41 U/L (25-115); LIPASE 71 U/L (73-393); PROTEIN - SERUM 7.7 g/dL (6.4-8.2); TROPONIN-I < 0.017 ng/mL (0.000-0.060)
[2020-08-27] MEDS ORDERED: COLACE100 MG PO (22:03)
[2020-08-27] MEDS ORDERED: MOVANTIK25 MG PO (22:03)
[2020-08-27 22:35] VITALS: BP 185/74
== END 2020-08-27 22:40 | disposition home or self-care (01) ==
LOC: D.ER 16:58
PROVIDERS: Family Medicine
DX: K59.03 Drug induced constipation (principal); T40.2X5A Adverse effect of other opioids, initial encounter; Z86.73 Personal history of transient ischemic attack (TIA), and cerebral infarction without residual deficits; E11.9 Type 2 diabetes mellitus without complications; I10 Essential (primary) hypertension